=== PATIENT | female | born 1970 | race Caucasian/White ===

== ENCOUNTER → 2020-07-26 | Outpatient (CLI) | payer OTHER, BC ==
[~2020-07-26] MED LIST: NONE PER PT; lexapro PO
== END | disposition home or self-care (01) ==
LOC: STAR 12:35
PROVIDERS: ATTEND Obstetrics & Gynecology
DX: Z01.812 Encounter for preprocedural laboratory examination (principal); Z20.828 Contact with and (suspected) exposure to other viral communicable diseases
CPT/HCPCS: 36415; 87635

== ENCOUNTER 2020-07-30 12:25 | Day surgery (SDC) | payer OTHER, BC ==
[~2020-07-30] VITALS: Ht 172.7 cm; Wt 67.2 kg
[~2020-07-30 12:25] MED LIST changes: -NONE PER PT
[2020-07-30] MEDS ORDERED: LACTATED RINGERS 1,000 ML IV SCH (13:08)
[2020-07-30] MEDS ORDERED: NONE PER PT (13:10)
[2020-07-30] MEDS ORDERED: CHLORHEXIDINE 15 ML UDC MM ONE (13:30)
[2020-07-30 13:41] VITALS: BP 113/73
[2020-07-30 13:49] LABS: BASOPHILS # (AUTO) 0.03 x10^3/uL (0-0.1); BASOPHILS % (AUTO) 0 % (0-1); EOSINOPHILS # (AUTO) 0.14 x10^3/uL (0-0.4); EOSINOPHILS % (AUTO) 1 % (1-7); LYMPHOCYTES # (AUTO) 1.17 x10^3/uL (1-3.4); LYMPHOCYTES % (AUTO) 8 % (22-44); MD NO; MEAN CORPUSCULAR HEMOGLOBIN 31.4 pg (27.0-34.8); MEAN CORPUSCULAR VOLUME 98.1 fL (80-100); MEAN PLATELET VOLUME 9.4 fL (7.4-10.4); MONOCYTES # (AUTO) 0.72 x10^3/uL (0.2-0.8); MONOCYTES % (AUTO) 5 % (2-9); NEUTROPHILS # (AUTO) 12.07 x10^3/uL (1.8-6.8); NEUTROPHILS % (AUTO) 85 % (42-75); PLATELET COUNT 188 x10^3/uL (130-400); RED BLOOD COUNT 4.49 x10^6/uL (3.82-5.3); RED CELL DISTRIBUTION WIDTH 12.7 % (9.6-15.2)
[2020-07-30 14:00] LABS: HCG UR SG 1.027 (1.003-1.030)
[2020-07-30 14:01] LABS: ANION GAP 7 mmol/L (5-15); CALCIUM 8.8 mg/dL (8.5-10.1); CHLORIDE 109 mmol/L (98-107); CREATININE 0.72 mg/dL (0.55-1.02)
[2020-07-30] MEDS ORDERED: VASOPRESSIN 20 UNIT/ML, 1ML ONE ×2 (14:15→14:50)
[2020-07-30] MEDS ORDERED: SODIUM CHLORIDE 0.9% 0 ML ONE (14:15)
[2020-07-30] MEDS ORDERED: SODIUM CHLORIDE 0.9% 100 ML ONE (14:50)
[2020-07-30] MEDS ORDERED: FENTANYL PF 250 MCG/5ML ONE (14:52)
[2020-07-30] MEDS ORDERED: MIDAZOLAM 1 MG/ML, 2ML ONE (14:53)
[2020-07-30] MEDS ORDERED: ONDANSETRON 2MG/ML, 2ML ONE (14:54)
[2020-07-30] MEDS ORDERED: DEXAMETHASONE 4 MG/ML, 1ML ONE (14:54)
[2020-07-30] MEDS ORDERED: NEOSTIGMINE 1 MG/ML, 10ML ONE (14:54)
[2020-07-30] MEDS ORDERED: SUCCINYLCHOLINE 20 MG/ML, 10ML ONE (14:54)
[2020-07-30] MEDS ORDERED: CEFAZOLIN 1,000 MG ONE (14:54)
[2020-07-30] MEDS ORDERED: PROPOFOL 10 MG/ML, 20ML ONE (14:54)
[2020-07-30] MEDS ORDERED: GLYCOPYRROLATE 0.2MG/1ML, 5ML ONE (14:54)
[2020-07-30] MEDS ORDERED: ROCURONIUM 10MG/ML,5ML ONE (14:54)
[2020-07-30] MEDS ORDERED: LIDOCAINE PF 2%, 5ML ONE (15:05)
[2020-07-30] MEDS ORDERED: PROPOFOL 50 ML ONE (15:18)
[2020-07-30] MEDS ORDERED: EPHEDRINE 50 MG/ML, 1ML IVPush PRN (15:30)
[2020-07-30] MEDS ORDERED: PROMETHAZINE 12.5 MG SUPP PR PRN (15:30)
[2020-07-30] MEDS ORDERED: HYDROmorphone 1 MG/ML, 1ML INJ IVPush PRN (15:30)
[2020-07-30] MEDS ORDERED: hydrALAzine 20 MG/ML, 1ML IV PRN (15:30)
[2020-07-30] MEDS ORDERED: METHOCARBAMOL 1,000 MG in DEXTROSE 5% 100 ML IV PRN (15:30)
[2020-07-30] MEDS ORDERED: FENTANYL PF 100 MCG/2ML IV PRN (15:30)
[2020-07-30] MEDS ORDERED: LABETALOL 5MG/ML, 20ML IV PRN (15:30)
[2020-07-30] MEDS ORDERED: MEPERIDINE/PF 25MG/0.5ML IVPush PRN (15:30)
[2020-07-30] MEDS ORDERED: MIDAZOLAM 1 MG/ML, 2ML IV PRN (15:30)
[2020-07-30] MEDS ORDERED: ACETAMINOPHEN 325 MG TABLET PO PRN (15:30)
[2020-07-30] MEDS ORDERED: DIPHENHYDRAMINE 50 MG/ML, 1ML IVPush PRN (15:30)
[2020-07-30] MEDS ORDERED: OXYcodone 5 MG/5 ML ORAL.SOL UDC PO PRN (15:30)
[2020-07-30] MEDS ORDERED: SUGAMMADEX 200 MG/2 ML IVPush ONE (15:45)
== END 2020-07-30 17:20 | disposition home or self-care (01) ==
LOC: OUT 12:25
PROVIDERS: ATTEND Obstetrics & Gynecology
DX: N92.1 Excessive and frequent menstruation with irregular cycle (principal); Z98.890 Other specified postprocedural states
CPT/HCPCS: 36415; 58563; 80048; 81025; 85025; J0330; J0690; J1100; J2250; J2405; J2704; J2710; J3010; J7120